=== PATIENT | male | born 1955 | race Caucasian/White ===

== ENCOUNTER 2017-06-17 12:17 | Outpatient (CLI) | payer OTHER ==
[~2017-06-17] VITALS: Ht 185.4 cm; Wt 104.5 kg
--- NOTE | ~2017-06-17 | HEMODYNAMI ---
PATIENT:CRISTIAN MACIAS MEDICAL RECORD: [id number] : 51 LOCATION:[facility] ADMISSION DATE: 06/17/17 Generatedon:06/17/201714:52 Patient name: CRISTIAN MACIAS Patient #: [id number] SSN: [id number] : 1955 Date of study: 06/17/2017 Page: Of Hemodynamic Procedure Report Patient Data Patient Demographics Procedure consent was obtained First Name: CRISTIAN Gender: Male Last Name: GILBERTO : 1955 [facility] Initial: CHARLIE Age: 61 year(s) Patient #: [id number] Race: Unknown SSN: [id number] Additional ID: [id number] Contact details Address: [address] [place] [address] State: [place] City: [place] Zip code: [address] Past Medical History Allergies Allergen Reaction Date Comments Reported Other allergy 06/17/2017 Shrimp Admission Admission Data Admission Date: 06/17/2017 Admission Time: 12:17 Procedure Procedure Types Cath Procedure Diagnostic Procedure C [facility] w/Coronaries Sedation Charges Moderate Sedation up to 15 minutes Procedure Description Procedure Date Procedure Date: 06/17/2017 Procedure Start Time: 14:32 Procedure End Time: 14:49 Procedure Staff Name Function Cody Prakash MD Performing Physician iNcolasa Foster RT Monitor Dontrell Canada RN Nurse Coreen Powell RT Scrub Procedure Data Cath Procedure Fluoroscopy Diagnostic fluoroscopy Total fluoroscopy Time: 2.4 time: 2.4 min min Diagnostic fluoroscopy Total fluoroscopy dose: 749 dose: 749 mGy mGy Contrast Material Contrast Material Type Amount (ml) Isovue 300 94 Entry Location Entry Primary Successful Side Size Upsize Upsize Entry Closure Iverson ccessful Closure Location (Fr) 1 (Fr) 2 (Fr) Remarks Device Remarks Radial Right 6 Fr Mechanical TR Band artery Short Compression Estimated blood loss: 10 ml Diagnostic catheters Device Type Used For End Catheter Placement DIAGNOSTIC Amado 110cm Procedure 5Fr catheter ([id number]) Procedure Complications No complications Procedure Medications Medication Administration Route Dosage Oxygen etCO2 Nasal cannula 2 l/min Heparin Flush Bag added to field 2 bags (1000units/500ml NS) 0.9% NaCl I.V. 100 ml/hr Radial Cocktail added to field 1 syringe (Verapomil 2mg/Nitro 400mcg/Heparin 1500units) Fentanyl I.V. 50 mcg Versed I.V. 1 mg Fentanyl I.V. 50 mcg Versed I.V. 1 mg Fentanyl I.V. 50 mcg Versed I.V. 1 mg Radial Cocktail added to field 1 syringe (Verapomil 2mg/Nitro 400mcg/Heparin 1500units) Hemodynamics Rest Heart Rate: 68 (bpm) Pressure Samples Time Site Value (mmHg) Purpose Heart Use Rate(bpm) 14:34 LV 125/-3,13 Snapshot 72 Gradients Valve Time Site Site Mean SEP/DFP Peak To Heart Use 1 2 (mmHg) (sec/min) Peak Rate (mmHg) (bpm) Aortic 14:35 LV AO 66 Snapshots Pre Cath Intra NCS Post Cath Vital Signs Time Heart Resp SPO2 etCO2 NIBP (mmHg) Rhythm Pain Sedation Rate (ipm) (%) (mmHg) Status Level (bpm) 14:20:45 58 17 98 25.8 151/92(117) NSR 0 (11) 10(A) , No pain 14:24:57 64 16 100 31 150/87(119) NSR 0 (11) 10(A) , No pain 14:29:09 62 15 93 30.3 137/82(96) NSR 0 (11) 9(A) , No pain 14:33:19 59 14 94 26.6 127/78(101) NSR 0 (11) 9(A) , No pain 14:37:31 61 16 93 14 120/69(96) NSR 0 (11) 9(A) , No pain 14:41:43 60 16 94 36.9 117/65(90) NSR 0 (11) 9(A) , No pain 14:45:52 60 16 96 23.6 117/70(85) NSR 0 (11) 9(A) , No pain Medications Time Medication Route Dose Verified Delivered Reason Notes Effectiveness by by 14:17:44 Oxygen etCO2 2 l/min Cody Jon Per Nasal Dwain Canada RN physician cannula 14:17:55 Heparin Flush added 2 bags Cody Jon used for Bag to Prakash MD [place] [employer] (1000units/500ml field NS) 14:18:03 0.9% NaCl I.V. 100 Cody Dontrell Per ml/hr Dwain Canada RN physician 14:23:37 Radial Cocktail added 1 Cody Dontrell used for (Verapomil to syringe Dwain Canada RN procedure 2mg/Nitro field 400mcg/Heparin 1500units) 14:26:21 Fentanyl I.V. 50 mcg Cody Dontrell for sedation Dwain Canada RN 14:26:27 Versed I.V. 1 mg Cody Dontrell for sedation Dwain Canada RN 14:28:01 Fentanyl I.V. 50 mcg Cody Dontrell for sedation Dwain Canada RN 14:28:05 Versed I.V. 1 mg Cody Dontrell for sedation Dwain Canada RN 14:32:48 Fentanyl I.V. 50 mcg Cody Dontrell for sedation Dwain Canada RN 14:32:53 Versed I.V. 1 mg Cody Dontrell for sedation Dwain Canada RN 14:33:01 Radial Cocktail added 1 Cody Cody for (Verapomil to syringe Dwain Prakash MD vasodilation 2mg/Nitro field 400mcg/Heparin 1500units) Procedure Log Time Note 13:52:20 Coreen Powell RT(R) sent for patient. Start room use. 14:07:18 Diagnostic Cath status Elective 14:07:33 Time tracking: Regular hours 14:07:39 Plan of Care:Hemodynamics will remain stable., Cardiac rhythm will remain stable., Comfort level will be maintained., Respiratory function will remain adequate., Patient/ family verbilizes understanding of procedure., Procedure tolerated without complication., Recovers from procedure without complications.. 14:07:46 Patient received from Pre/Post Procedure Room to [facility] 2 Alert and oriented. Tansferred to table in Supine position. 14:17:44 Oxygen 2 l/min etCO2 Nasal cannula was administered by Dontrell Canada RN; Per physician; 14:17:55 Heparin Flush Bag (1000units/500ml NS) 2 bags added to field was administered by Dontrell Canada RN; used for procedure; 14:18:03 0.9% NaCl 100 ml/hr I.V. was administered by Dontrell Canada RN; Per physician; 14:19:39 Vital chart was started 14:: Warm blankets applied, and robina hugger turned on for patient comfort. 14:: Correct patient and procedure confirmed by team. 14::25 Signed procedure consent form obtained from patient. 14::26 ECG and BP/O2 sat monitors applied to patient. 14:21:31 Baseline sample Acquired. 14:21:44 Full Disclosure recording started 14:: H&P Date Dictated: 06/13/2017 Within 30 days and on chart., H&P Addendum completed by physician on day of procedure. (MUST COMPLETE FOR ALL OUTPATIENTS). 14::38 Pre-procedure instructions explained to patient. 14:22:40 Family in waiting room. 14::42 Patient NPO since Midnight. 14:23:12 Patient allergic to Other allergyShrimp 14:23:19 Is the patient allergic to Iodine/contrast media? No. 14:23:21 Was the patient premedicated? Yes 14:23:23 Is patient on blood thinner?Yes 14:23:26 ACC The patient was administered the following blood thiners within the last 24 hours: ACCPlavix 14:23:29 Patient diabetic? No. 14:23:33 Snore? Yes 14:23:34 Sleep apnea? No 14:23:37 Radial Cocktail (Verapomil 2mg/Nitro 400mcg/Heparin 1500units) 1 syringe added to field was administered by Dontrell Canada RN; used for procedure; 14:23:37 Airway obstruction? Yes ? 14:23:42 Dentures? No ? 14:23:46 Patient pain scale 0/10 ?. 14:23:51 IV patent on arrival in left forearm with 0.9% NaCl at KVO. 14:25:02 Lab results completed and on chart. 14:26:03 Right Radial & Right Groin area was prepped with chlora-prep and draped in sterile fashion 14:26:05 Alarms reviewed by R. N. 14:26:06 Sharps counted by scrub and verified by R.N. 14:26:08 Physician paged 14:26:09 Physician arrived 14:: --------ALL STOP TIME OUT------ 14:26:11 Final Timeout: patient, procedure, and site verified with staff and physician. All members of the team are in agreement. 14:26:15 Right Radial & Right Groin site verified by team. 14:26:20 Physical assessment completed. ASA score P 2 - A patient with mild systemic disease as per Cody Prakash MD. 14:26:21 Fentanyl 50 mcg I.V. was administered by Dontrell Canada RN; for sedation; 14::25 Sedation plan: IV Moderate Sedation Medication:Versed, Fentanyl 14:26:27 Versed 1 mg I.V. was administered by Dontrell Canada RN; for sedation; 14:26:37 Use device set Femoral Dx 14:26:39 ACIST Syringe (44691) opened to sterile field. 14:26:40 Bag Decanter (2002S) opened to sterile field. 14:26:40 Medline Cath Pack ([id number]) opened to sterile field. 14:26:42 DIAGNOSTIC WIRE .035 260cm J wire ([id number]) opened to sterile field. 14:26:44 ACIST Hand Control (23965) opened to sterile field. 14:26:44 ACIST Manifold (23066) opened to sterile field. 14:26:46 Tegaderm 4 x 4 (1626W) opened to sterile field. 14:27:54 SHEATH 6Fr Prelude Radial ([id number]) opened to sterile field. 14:28:01 Fentanyl 50 mcg I.V. was administered by Dontrell Canada RN; for sedation; 14:28:05 Versed 1 mg I.V. was administered by Dontrell Canada RN; for sedation; 14:31:18 Procedure started. 14:31:29 Zero performed for pressure channel P1 14:31:40 Zero performed for pressure channel P1 14:32:29 Zero performed for pressure channel P1 14:32:48 Fentanyl 50 mcg I.V. was administered by Dontrell Canada RN; for sedation; 14:32:48 Local anesthetic to right radial artery with Lidocaine 2% by Cody Prakash MD.INITIAL ACCESS ONLY 14:32:53 Versed 1 mg I.V. was administered by Dontrell Canada RN; for sedation; 14:33:00 A 6 Fr Short sheath was inserted into the Right Radial artery 14:33:01 Radial Cocktail (Verapomil 2mg/Nitro 400mcg/Heparin 1500units) 1 syringe added to field was administered by Cody Prakash MD; for vasodilation; 14:33:09 J wire advanced. 14:33:41 A DIAGNOSTIC Amado 110cm 5Fr catheter ([id number]) was advanced over the wire and used for Procedure. 14:33:52 LV angiography performed. 14:35:50 EF : 10 % 14:36:02 LCA angiography performed. 14:38:44 RCA angiography performed. 14:45:15 Catheter removed. 14:46:38 Sheath removed intact; hemostasis achieved with Mechanical Compression to the Right Radial artery. 14:46:44 Procedure ended.(Physican Out) 14:46:56 Fluoroscopy time 02.40 minutes. 14:47:00 Flurop Dose total: 749 14:47:00 Fluoroscopy dose: 749 mGy 14:47:05 Contrast amount:Isovue 300 94ml. 14:47:07 Sharps counted by scrub and verified by R.N. 14:47:10 TR band inflated with 14cc of air. 14:47:12 Insertion/operative site no bleeding no hematoma. 14:47:14 Post Procedure Pulses reassessed and unchanged 14:47:18 Post-procedure physical assessment completed. ASA score P 3 - A patient with severe systemic disease as per Cody Prakash MD. 14:47:23 Post procedure rhythm: unchanged. 14:47:29 Estimated blood loss: 10 ml 14:47:31 Post procedure instruction explained to patient.Patient verbalizes understanding. 14:48:05 Procedure type changed to Cath procedure, Diagnostic procedure, LHC, LHC w/Coronaries, Sedation Charges, Moderate Sedation up to 15 minutes 14:48:07 Procedure and supply charges have been captured, reviewed, submitted and are correct. 14:49:04 Procedure Complication : No complications 14:49:07 Vital chart was stopped 14:49:07 See physician's report for complete and final results. 14:49:09 Report given to Pre/Post Procedure Room. 14:49:12 Patient transfered to Pre/Post Procedure Room with Stretcher. 14:49:14 Procedure ended. 14:49:14 Full Disclosure recording stopped 14:49:17 End room use (Document Last) Device Usage Item Name Manufacture Quantity Catalog Number Hospital Part Current M inimal Lot# / Charge Number Stock Stock Serial# Code ACIST Syringe Acist 1 92199 215321 842553 019081 2 0 (23709) [employer] Bag Decanter Microtek 1 2001S 899752 60275 893070 5 (2001S) [employer]. Medline Cath Cardinal 1 [id number] 585454 22034 265561 5 [facility] Bionym ([id number]) DIAGNOSTIC WIRE [place] 1 804260 708081 212016 202412 3 0 .035 260cm J wire (348435) ACIST Hand Acist 1 57667 151854 797959 329990 5 Control (49706) [employer] ACIST Manifold Acist 1 21677 841016 218783 010440 5 (45721) [employer] Tegaderm 4 x 4 3M 1 1626W 885855 804135 628542 5 (1626W) SHEATH 6Fr Merit 1 [id number] 798279 774861 784679 5 Prelude Radial Medical ([id number]) DIAGNOSTIC Terumo 1 90-5678 174461 342505 610905 5 Amado 110cm 5Fr catheter (022691) Signature Audit [place] Stage Time Signature Unsigned Intra-Procedure 06/17/2017 Nicolasa Foster 2:52:03 PM RT(R) Signatures Monitor : Nicolasa Foster Signature : RT Date : Time : [id number] [place] [address]
[~2017-06-17 12:17] MED LIST: ALTACE5 MG PO; ASPIRIN325 MG PO; COREG CR20 MG PO; CRESTOR10 MG PO; FISH OIL PO; PLAVIX75 MG PO; VENTOLIN HFA18 GM INH
[2017-06-17 12:58] VITALS: BP 147/74; Ht 185.4 cm; Wt 104.5 kg
[2017-06-17 13:14] LABS: BASOPHILS 0.5 % (0-2); EOSINOPHILS 5.2 % (0-7); HEMATOCRIT 45.6 % (42.0-54.0); HEMOGLOBIN 15.7 g/dL (13.5-17.5); IMMATURE GRANULOCYTES 0.7 % (0-5); LYMPHOCYTES 22.5 % (15-50); MCH 29.6 pg (26.0-34.0); MCHC 34.4 g/dL (31.0-37.0); MCV 85.9 fL (80.0-100.0); MEAN PLATELET VOLUME 9.9 fL (7.4-10.4); MONOCYTES 12.6 % (2-11); NEUTROPHILS 58.5 % (40-80); PLATELET COUNT 206 10x3/uL (130-400); RBC 5.31 10x6/uL (4.20-6.10); RDW 14.2 % (11.5-14.5)
[2017-06-17 13:17] LABS: CALC OSMOLALITY 280 mosm/kg (275-300); CALCIUM 9.4 mg/dL (8.5-10.1); CARBON DIOXIDE 30.9 mmol/L (21.0-32.0); CHLORIDE - SERUM 102 mmol/L (98-107); CREATININE - SERUM 0.8 mg/dL (0.6-1.3); GLUCOSE 84 mg/dL (74-106); POTASSIUM - SERUM 3.7 mmol/L (3.5-5.1); SODIUM 141 mmol/L (136-145); UREA NITROGEN 16 mg/dL (7-18); eGFR NON AFRICAN AMERICAN > 90 mL/min (90-120)
== END 2017-06-17 17:05 | disposition home or self-care (01) ==
LOC: D.CATH 12:17
PROVIDERS: Internal Medicine Cardiovascular Disease
DX: I25.119 Atherosclerotic heart disease of native coronary artery with unspecified angina pectoris (principal); I10 Essential (primary) hypertension; I42.9 Cardiomyopathy, unspecified; Z01.812 Encounter for preprocedural laboratory examination

== ENCOUNTER → 2018-09-15 08:36 | Outpatient (CLI) | payer OTHER ==
[2017-06-17 12:58] VITALS: BMI 30.4
== END | disposition home or self-care (01) ==
LOC: D.HCCARDIO 08:30
PROVIDERS: ATTEND Internal Medicine Cardiovascular Disease
DX: I42.9 Cardiomyopathy, unspecified (principal)

== ENCOUNTER 2019-03-04 06:29 | Outpatient (CLI) | payer OTHER ==
[~2019-03-04] VITALS: Ht 185.4 cm; Wt 106.8 kg
--- NOTE | ~2019-03-04 | HEMODYNAMI ---
PATIENT:CRISTIAN MACIAS MEDICAL RECORD: [id number] : 51 LOCATION:D.CAT ADMISSION DATE: 03/04/19 Generatedon:03/04/20199:06 Patient name: CRISTIAN MACIAS Patient #: [id number] SSN: [id number] : 1955 Date of study: 03/04/2019 Page: Of Hemodynamic Procedure Report Patient Data Patient Demographics Procedure consent was obtained First Name: CRISTIAN Gender: Male Last Name: GILBERTO : 1955 [facility] Initial: CHARLIE Age: 63 year(s) Patient #: [id number] Race: SSN: [id number] Additional ID: [id number] Contact details Address: [address] [place] [address] State: [place] City: [place] Zip code: [address] Past Medical History Allergies Allergen Reaction Date Comments Reported Other allergy 06/17/2017 Shrimp Other allergy 03/04/2019 [facility] Admission Admission Data Admission Date: 03/04/2019 Admission Time: 6:29 Arrival Date: 03/04/2019 Arrival Time: 0:00 Insurance Payor: Private health insurance [facility] #: [id number] Height (in.): 73 BSA: 2.31 (m2) Height (cm.): 185.42 BMI: 31.07 (kg/m2) Weight (lbs.): 235.48 Weight (kg.): 106.81 Lab Results Lab Result Date: 03/04/2019 Lab Result Time: 0:00 Biochemistry Name Units Result Min Max BUN mg/dl 15 --(--*-)-- 7 18 Creatinine mg/dl 0.9 --(-*--)-- 0.6 1.3 eGFR ml/min 90 --(*---)-- 90 120 NONAFRICAN CBC Name Units Result Min Max Hematocrit % 49.5 --(--*-)-- 42 54 Hemoglobin g/dl 16.7 --(---*)-- 13.5 17.5 Procedure Procedure Types Cath Procedure Diagnostic Procedure [facility] w/Coronaries Procedure Description Procedure Date Procedure Date: 03/04/2019 Procedure Start Time: 8:50 Procedure End Time: 9:05 Procedure Staff Name Function Cody Prakash MD Performing Physician Alicia Preston RT Monitor Raad Gilmore RN Nurse Tommy Floyd RT Scrub Indication Dyspnea with exertion Acute coronary syndrome Procedure Data Cath Procedure Fluoroscopy Diagnostic fluoroscopy Total fluoroscopy Time: 1.7 time: 1.7 min min Diagnostic fluoroscopy Total fluoroscopy dose: 610 dose: 610 mGy mGy Contrast Material Contrast Material Type Amount (ml) Isovue 370 63 Entry Location Entry Primary Successful Side Size Upsize Upsize Entry Closure Iverson ccessful Closure Location (Fr) 1 (Fr) 2 (Fr) Remarks Device Remarks Radial Right 6 Fr Mechanical artery Short Compression Estimated blood loss: 5 ml Diagnostic catheters Device Type Used For End Catheter Placement DIAGNOSTIC Amado 110cm Procedure 5Fr catheter ([id number]) Procedure Complications No complications Procedure Medications Medication Administration Route Dosage Oxygen etCO2 Nasal cannula 2 l/min Lidocaine 2% added to field 20 Heparin Flush Bag added to field 2 bags (1000units/500ml NS) 0.9% NaCl I.V. 100 ml/hr Versed I.V. 2 mg Fentanyl I.V. 100 mcg Radial Cocktail I.A. 1 syringe (Verapamil 2mg/Nitro 400mcg/Heparin 1500units) Versed I.V. 2 mg Fentanyl I.V. 50 mcg Hemodynamics Rest BSA: 2.31 (m2) HGB: 16.7 (g/dl) O2 Consumption: Estimated: 264.77 (ml/min) O2 Co nsumption indexed: Estimated:114.62 (ml/min/m) Heart Rate: 65 (bpm) Pressure Samples Time Site Value (mmHg) Purpose Heart Use Rate(bpm) 8:55 LV 110/8,21 Snapshot 76 8:55 AO 94/57(71) Pullback 74 8:55 LV 103/2,12 Pullback 74 Gradients Valve Time Site 1 Site 2 Mean SEP/DFP Peak To Heart Use (mmHg) (sec/min) Peak Rate (mmHg) (bpm) Aortic 8:55 LV AO 7 15 9 74 103/2,12 94/57(71) Calculations Valve P-P Mean Valve Index Valve Source Name Gradient Area Flow (cm2) Aortic 9 7 9 7 Snapshots Pre Cath Intra NCS Post Cath Vital Signs Time Heart Resp SPO2 etCO2 NIBP (mmHg) Rhythm Pain Sedation Rate (ipm) (%) (mmHg) Status Level (bpm) 8:32:52 76 22 97 0 145/88(114) NSR 0 (11) 10(A) , No pain 8:37:06 67 23 95 34.2 134/78(107) NSR 0 (11) 10(A) , No pain 8:41:19 67 15 95 32.6 117/74(102) NSR 0 (11) 10(A) , No pain 8:45:31 68 30 94 0 115/75(95) NSR 0 (11) 10(A) , No pain 8:49:46 64 28 94 0 114/63(86) NSR 0 (11) 9(A) , No pain 8:54:01 77 18 93 38 119/67(84) NSR 0 (11) 9(A) , No pain 8:58:08 74 15 93 35.7 110/69(104) NSR 0 (11) 9(A) , No pain 9:02:22 70 19 93 33.4 112/64(87) NSR 0 (11) 10(A) , No pain Medications Time Medication Route Dose Verified Delivered Reason Notes Effectiveness by by 8:20:25 Oxygen etCO2 2 l/min Cdoy Buffie used for Nasal Dwain Gilmore RN procedure cannula 8:20:31 Lidocaine 2% added 20ml Cody Cody for local to vial Dwain Prakash MD anesthetic field 8:20:36 Heparin Flush added 2 bags Cody Cody used for Bag to Dwain Prakash MD procedure (1000units/500ml field NS) 8:20:45 0.9% NaCl I.V. 100 Cody Buffie Per ml/hr Dwain Gilmore RN physician 8:47:06 Versed I.V. 2 mg Cody Buffie for sedation Dwain Gilmore RN 8:47:12 Fentanyl I.V. 100 mcg Cody Buffie for sedation Dwain Gilmore RN 8:53:12 Versed I.V. 2 mg Cody Cody for sedation Dwain Prakash MD 8:54:13 Radial Cocktail I.A. 1 Cody Cody for (Verapamil syringe Dwain Prakash MD vasodilation 2mg/Nitro 400mcg/Heparin 1500units) 8:54:25 Fentanyl I.V. 50 mcg Cody Ross for sedation Dwain Prakash MD Procedure Log Time Note 7:58:55 Informed consent obtained and on chart 7:59:51 Patient Weight : 235.48 lbs 7:59:59 Patient Height : 73 inches 8:00:04 Arrival Date: 03/04/2019 12:00:00 AM 8:00:07 Insurance Payor : Private health insurance 8:03:09 Diagnostic Cath Status : Elective 8:03:46 Indication : Dyspnea with exertion 8:04:11 Indication : Acute coronary syndrome 8:04:33 Lab results completed and on chart. 8:16:02 Tommy Floyd RT(R) sent for patient. Start room use. 8:20:00 Procedure Status Elective Heart Cath (OP). 8:20:04 Time tracking: Regular hours (M-F 7:00 - 5:00) 8:20:09 Plan of Care:Hemodynamics will remain stable., Cardiac rhythm will remain stable., Comfort level will be maintained., Respiratory function will remain adequate., Patient/ family verbilizes understanding of procedure., Procedure tolerated without complication., Recovers from procedure without complications.. 8:20:25 Oxygen 2 l/min etCO2 Nasal cannula was administered by Raad Gilmore RN; used for procedure; Verbal order read back and verified. 8:20:31 Lidocaine 2% 20ml vial added to field was administered by Cody Prakash MD; for local anesthetic; Verbal order read back and verified. 8:20:36 Heparin Flush Bag (1000units/500ml NS) 2 bags added to field was administered by Cody Prakash MD; used for procedure; Verbal order read back and verified. 8:20:39 H&P Date Dictated: 03/04/2019 Within 30 days and on chart.. 8:20:45 0.9% NaCl 100 ml/hr I.V. was administered by Raad Gilmore RN; Per physician; Verbal order read back and verified. 8:20:53 Stress Test: no; N/A ? 8:21:21 Risk of Mortality: 0.1 8:21:23 Risk of blood transfusion: 0.1 8:25:02 Patient received from Pre/Post Procedure Room to CCL 1 Alert and oriented. Tansferred to table in Supine position. 8:25:03 Warm blankets applied, and robina hugger turned on for patient comfort. 8:25:04 Correct patient and procedure confirmed by team. 8:25:09 Pre-procedure instructions explained to patient. 8:25:09 Pre-op teaching completed and patient verbalized understanding. 8:25:11 Family in waiting room. 8:25:14 Patient NPO since Midnight. 8:25:17 Is the patient allergic to Iodine/contrast media? No. 8:25:19 Was the patient premedicated? Yes 8:25:26 Alarms reviewed by R. N. 8:25:26 Sharps counted by scrub and verified by R.N. 8:25:32 ECG and BP/O2 sat monitors applied to patient. 8:31:47 Vital chart was started 8:38:58 Pre procedure: right dorsailis pedis pulse 2+ Normal; easily identifiable; not easily obliterated 8:39:01 Modified Jesse's test Ulnar < 7 seconds 8:39:04 Patient pain scale 0/10 ?. 8:39:13 IV patent on arrival in left antecubital with 0.9% NaCl at [facility]. 8:39:51 Lab Result : BUN 15 mg/dl 8:39:51 Lab Result : Creatinine 0.9 mg/dl 8:39:51 Lab Result : eGFR NONAFRICAN 90 ml/min 8:39:51 Lab Result : Hemoglobin 16.7 g/dl 8:39:51 Lab Result : Hematocrit 49.5 % 8:40:05 Baseline sample Acquired. 8:40:19 Full Disclosure recording started 8:40:31 Patient allergic to Other allergySHRIMP 8:40:35 Is patient on blood thinner?No 8:40:37 Patient diabetic? No. 8:40:43 ----Pre-sedation anethsthesia assessment.---- 8:40:46 Previous problem with sedation/anesthesia? No ? 8:40:48 Snore? Yes 8:40:50 Sleep apnea? No 8:40:52 Deviated septum? No 8:40:52 Opens mouth fully? Yes 8:40:53 Sticks out tongue? Yes 8:40:55 Airway obstruction? No ? 8:40:58 Dentures? No ? 8:41:08 Right Radial & Right Groin area was prepped with chlora-prep and draped in sterile fashion 8:42:56 Risk of PADMINI: 1.7 8:43:06 If diabetic: On Metformin? N/A 8:43:28 Rhythm: sinus rhythm 8:45:07 Use device set Radial Dx or PCI 8:45:08 ACIST Syringe (39289) opened to sterile field. 8:45:09 Medline Cath Pack ([id number]) opened to sterile field. 8:45:10 Bag Decanter (2002) opened to sterile field. 8:45:11 ACIST Hand Control (22850) opened to sterile field. 8:45:11 ACIST Manifold (64273) opened to sterile field. 8:45:13 MBraImmunetics Wrist Support ([id number]) opened to sterile field. 8:45:14 NEEDLE Cook 21G 4cm Radial (U12811) opened to sterile field. 8:45:15 EMERALD Guide Wire (502-060) opened to sterile field. 8:45:16 SHEATH 6FR RAIN (3452740) opened to sterile field. 8:46:39 --------ALL STOP TIME OUT------ 8:46:39 Final Timeout: patient, procedure, and site verified with staff and physician. All members of the team are in agreement. 8:46:42 Right Radial & Right Groin site verified by team. 8:46:46 Fire Safety Assessment: A--An alcohol-based skin anteseptic being used preoperatively., C--Open oxygen or nitrous oxide is being used., D--An ESU, laser, or fiber-optic light is being used. 8:46:49 Physical assessment completed. ASA score P 2 - A patient with mild systemic disease as per Cody Prakash MD. 8:46:52 1) 90+ Normal kidney functon but urine findings or structural abnormalities or genetic trait point to kidney disease. 8:46:55 Maximum allowable contrast dose (3.7 X eGFR X 0.75)250 ml. 8:47:01 Sedation plan: IV Moderate Sedation Medication:Versed, Fentanyl 8:47:06 Versed 2 mg I.V. was administered by Raad Gilmore RN; for sedation; Verbal order read back and verified. 8:47:12 Fentanyl 100 mcg I.V. was administered by Raad Gilmore RN; for sedation; Verbal order read back and verified. 8:49:55 Procedure started. 8:50:04 Local anesthetic to right radial artery with Lidocaine 2% by Cody Prakash MD.INITIAL ACCESS ONLY 8:53:12 Versed 2 mg I.V. was administered by Cody Prakash MD; for sedation; Verbal order read back and verified. 8:53:28 A 6 Fr Short sheath was inserted into the Right Radial artery 8:54:13 Radial Cocktail (Verapamil 2mg/Nitro 400mcg/Heparin 1500units) 1 syringe I.A. was administered by Cody Prakash MD; for vasodilation; Verbal order read back and verified. 8:54:14 A DIAGNOSTIC Amado 110cm 5Fr catheter (879761) was advanced over the wire and used for Procedure. 8:54:14 Injector settings: Ml/sec: 5, Volume: 15, 8:54:25 Fentanyl 50 mcg I.V. was administered by Cody Prakash MD; for sedation; Verbal order read back and verified. 8:55:14 LV hemodynamics recorded. 8:55:16 LV gram done using HENDRICKSON 8:55:29 EF : 35 % 8:56:00 LCA angiography performed. 8:58:27 RCA angiography performed. 9:00:20 Procedure ended.(Physican Out) 9:02:00 ACCDominant side:Left 9:02:04 Catheter removed. 9:02:16 Sheath removed intact; hemostasis achieved with Mechanical Compression to the Right Radial artery. 9:02:19 ZEPHYR REGULAR TR BAND ([id number]) opened to sterile field. 9:02:35 Fluoroscopy time 01.70 minutes. 9:02:39 Flurop Dose total: 610 9:02:39 Fluoroscopy dose: 610 mGy 9:02:46 Dose Area Product 91231 mGy/cm. 9:02:50 Contrast amount:Isovue 370 63ml. 9:02:53 Maximum allowable dose exceeded? No. 9:02:53 Sharps counted by scrub and verified by R.N. 9:02:56 [place] band inflated with 10cc of air. 9:02:58 Post Procedure Pulses reassessed and unchanged 9:03:01 Post procedure: right dorsailis pedis pulse 2+ Normal; easily identifiable; not easily obliterated. 9:03:05 Post-procedure physical assessment completed. ASA score P 2 - A patient with mild systemic disease as per Cody Prakash MD. 9:03:08 Post procedure rhythm: unchanged. 9:03:10 Estimated blood loss: 5 ml 9:03:12 Post procedure instruction explained to patient.Patient verbalizes understanding. 9:03:13 Patient needs reinforcement of post procedure teaching. 9:04:45 Procedure and supply charges have been captured, reviewed, submitted and are correct. 9:04:49 Procedure Complication : No complications 9:04:51 Vital chart was stopped 9:04:53 [facility] Findings: mild to moderate CAD (<70%) 9:04:55 Operative report dictated upon procedure completion. 9:04:56 See physician's report for complete and final results. 9:04:58 Report given to Pre/Post Procedure Room. 9:05:01 Patient transfered to Pre/Post Procedure Room with Stretcher. 9:05:08 Procedure ended. 9:05:08 Full Disclosure recording stopped 9:05:21 End room use (Document Last) 9:05:53 End room use (Document Last) 9:06:21 End room use (Document Last) Device Usage Item Name Manufacture Quantity Catalog Hospital Part Current Minima l Lot# / Number Charge Number Stock Stock Serial# Code ACIST Acist 1 19674 472642 [id number] 20 Syringe Medical (70863) Systems Inc Medline Medline 1 [id number] 017261 79536 269856 5 Cath Pack ([id number]) Bag Microtek 1 542318 05409 932495 5 Decanter Medical Inc. () ACIST Hand Acist 1 32132 495542 757748 239824 5 Control Medical (58861) Systems Inc ACIST Acist 1 65478 293878 043631 275167 5 Manifold Medical (99917) Systems Inc MBrace Advanced 1 [id number] 044760 32088 833696 5 Wrist Vascular Support Dynamics ([id number]) NEEDLE Cook Cook Medical 1 [id number] 716980 083756 378645 5 21G 4cm Radial (V64206) EMERALD Cardinal 1 057-233 419175 535478 528790 5 Guide Wire [facility] (766-549) SHEATH 6FR Cardinal 1 [id number] 723023 3307516 911631 5 [facility] (8611486) DIAGNOSTIC Terumo 1 405023 707499 308247 367672 5 Amado 110cm 5Fr catheter (432908) ZEPHYR Cardinal 1 662682 275935 1614145 051724 5 REGULAR TR Health BAND (425804) Signature Audit [place] Stage Time Signature Unsigned Intra-Procedure 03/04/2019 Alicia Preston 9:05:53 AM RT(R) Intra-Procedure 03/04/2019 Raad Gilmore RN 9:06:21 AM Intra-Procedure 03/04/2019 Cody Prakash MD 9:06:41 AM [facility] [address] [place] [address]
[2019-03-04] MEDS ORDERED: ASPIRIN325 MG PO (06:59)
[2019-03-04] MEDS ORDERED: COREG CR40 MG PO (07:01)
[2019-03-04 07:20] VITALS: BP 129/76; Ht 185.4 cm; Wt 106.8 kg
[2019-03-04 07:36] LABS: BASOPHILS 0.6 % (0-2); EOSINOPHILS 8.8 % (0-7); HEMATOCRIT 49.5 % (42.0-54.0); HEMOGLOBIN 16.7 g/dL (13.5-17.5); IMMATURE GRANULOCYTES 0.6 % (0-5); LYMPHOCYTES 19.8 % (15-50); MCH 29.7 pg (26.0-34.0); MCHC 33.7 g/dL (31.0-37.0); MCV 88.1 fL (80.0-100.0); MEAN PLATELET VOLUME 9.8 fL (7.4-10.4); MONOCYTES 10.7 % (2-11); NEUTROPHILS 59.5 % (40-80); PLATELET COUNT 202 10x3/uL (130-400); RBC 5.62 10x6/uL (4.20-6.10); RDW 14.5 % (11.5-14.5)
[2019-03-04 08:24] LABS: ALT (SGPT) 28 U/L (10-68); CALC OSMOLALITY 281 mosm/kg (275-300); CALCIUM 8.9 mg/dL (8.5-10.1); CARBON DIOXIDE 30.6 mmol/L (21.0-32.0); CHLORIDE - SERUM 106 mmol/L (98-107); CHOL - HDL RATIO 3.9 ratio (2.3-4.9); CHOLESTEROL, TOTAL 177 mg/dL (0-200); CREATININE - SERUM 0.9 mg/dL (0.6-1.3); GLUCOSE 98 mg/dL (74-106); HDL CHOLESTEROL 46 mg/dL (32-96); LDL CHOLESTEROL 112 mg/dL (0-100); LDL-HDL RATIO 2.4 ratio (1.5-3.5); POTASSIUM - SERUM 4.6 mmol/L (3.5-5.1); SODIUM 141 mmol/L (136-145); TRIGLYCERIDE 97 mg/dL (30-200); UREA NITROGEN 15 mg/dL (7-18); eGFR NON AFRICAN AMERICAN 90 mL/min (90-120)
--- NOTE | 2019-03-04 09:10 | NUR ---
PT ARRIVED BY STRETCHER. PLACED ON MONITORS. ASSESSMENT COMPLETED. VSS. CALL LIGHT WITHIN REACH. FAMILY AT BEDSIDE. DR. CHAU ROUNDED AND SPOKE WITH PT AND PT'S FAMILY.
--- NOTE | 2019-03-04 09:25 | NUR ---
RIGHT WRIST Z BAND IN PLACE. NO BLEEDING/HEMATOMA NOTED. VSS.
--- NOTE | 2019-03-04 09:55 | NUR ---
RIGHT WRIST Z BAND IN PLACE. NO BLEEDING/HEMATOMA NOTED. PT SITTING UP IN BED EATING. DENIES NAUSEA/PAIN AT THIS TIME. VSS. CALL LIGHT WITHIN REACH.
--- NOTE | 2019-03-04 10:05 | NUR ---
2cc OF AIR REMOVED FROM Z BAND. NO BLEEDING/HEMATOMA NOTED. CALL LIGHT WITHIN REACH. VSS. FAMILY AT BEDSIDE.
--- NOTE | 2019-03-04 10:25 | NUR ---
3cc OF AIR REMOVED FROM Z BAND. TOLERATED WELL. NO BLEEDING/HEMATOMA NOTED. CALL LIGHT WITHIN REACH. VSS AT THIS TIME. FAMILY AT BEDSIDE.
--- NOTE | 2019-03-04 10:40 | NUR ---
4cc OF AIR REMOVED FROM Z BAND. NO BLEEDING/HEMATOMA NOTED. CALL LIGHT WITHIN REACH. VSS. PT RESTING COMFORTABLY AT THIS TIME. FAMILY AT BEDSIDE.
--- NOTE | 2019-03-04 11:00 | NUR ---
Z BAND REMOVED. NO BLEEDING/HEMATOMA NOTED. PIV D/C'D WITH CATH TIP INTACT. TOLERATED WELL. PT INSTRUCTED TO GET UP AND DRESSED. FAMILY AT BEDSIDE TO ASSIST.
--- NOTE | 2019-03-04 11:10 | NUR ---
DISCUSSED DISCHARGE INSTRUCTIONS WITH PT AND PT'S FAMILY. THEY VOICED UNDERSTANDING.
--- NOTE | 2019-03-04 11:25 | NUR ---
RIGHT WRIST DRESSING C/D/I. NO S/S OF HEMATOMA NOTED. PT AMBULATED TO RESTROOM. VOIDED WITHOUT DIFFICULTY. TAKEN OUT TO VEHICLE. NO S/S OF DISTRESS NOTED. ALL BELONGINGS AND PAPERWORK IN HAND.
== END 2019-03-04 11:25 | disposition home or self-care (01) ==
LOC: D.CATH 06:29
PROVIDERS: ATTEND Internal Medicine Cardiovascular Disease
DX: I25.118 Atherosclerotic heart disease of native coronary artery with other forms of angina pectoris (principal); Z95.810 Presence of automatic (implantable) cardiac defibrillator; I42.9 Cardiomyopathy, unspecified; I10 Essential (primary) hypertension; Z72.0 Tobacco use; R06.09 Other forms of dyspnea

== ENCOUNTER → 2020-09-06 08:31 | Outpatient (CLI) | payer BC ==
[2019-03-04 07:20] VITALS: BMI 31.0
[~2020-09-06 08:31] MED LIST changes: +COREG CR40 MG PO
== END | disposition home or self-care (01) ==
LOC: D.HCCECHO 08:31
PROVIDERS: ATTEND Internal Medicine Cardiovascular Disease
DX: I25.10 Atherosclerotic heart disease of native coronary artery without angina pectoris (principal)